=== PATIENT | male | born 1995 | race African-American/Black ===

== ENCOUNTER 2020-08-20 00:14 | Emergency (ER) | payer OTHER ==
[2020-08-20 01:13] VITALS: BP 128/82
[2020-08-20] MEDS ORDERED: LIDOCAINE 1% INJ-PF (10 MG/ML) 30 ML SDV INJ ONE (03:40)
[2020-08-20] MEDS ORDERED: ONDANSETRON 4 MG TAB.RAPDIS PO ONE (03:41)
[2020-08-20] MEDS ORDERED: OXYCODONE-ACETAMINOPHEN 5-325 MG TABLET PO ONE (03:41)
--- NOTE | 2020-08-20 03:42 | ER Document Report ---
ED Wound - General Chief Complaint: Laceration Stated Complaint: LAC TO LEFT PINKY Time Seen by Provider: 08/20/20 02:59 Notes: Patient is a 24-year-old male that comes emergency department for chief complaint of laceration to the left fifth finger over the palmar aspect. Patient states that he was using a box liner to cut through zip ties, he states 1 of the tires did not cut and he accidentally twisted the blade and caught his hand on it (he was holding the box liner with both hands). He is right-handed. He is up-to-date on his tetanus within 5 years. He denies any other complaints. Past Medical History - General Information source: Patient - Social History Smoking Status: Current Every Day Smoker Frequency of alcohol use: None Drug Abuse: None Lives with: Family Family History: Reviewed & Not Pertinent - Medical History Medical History: Negative Surgical Hx: Negative - Immunizations Immunizations up to date: Yes Hx Diphtheria, Pertussis, Tetanus Vaccination: Yes Review of Systems - Review of Systems Constitutional: No symptoms reported EENT: No symptoms reported Cardiovascular: No symptoms reported Respiratory: No symptoms reported Gastrointestinal: No symptoms reported Genitourinary: No symptoms reported Male Genitourinary: No symptoms reported Musculoskeletal: See HPI Skin: See HPI Hematologic/Lymphatic: No symptoms reported Neurological/Psychological: No symptoms reported Physical Exam - Vital signs Vitals: Temp Pulse Resp BP Pulse Ox 97.9 F 61 16 128/82 H 99 08/20/20 01:10 08/20/20 01:10 08/20/20 01:10 08/20/20 01:10 08/20/20 01:10 - Notes Notes: GENERAL: Alert, interacts well. No acute distress. HEAD: Normocephalic, atraumatic. EYES: Pupils equal, round, and reactive to light. Extraocular movements intact. ENT: Oral mucosa moist, tongue midline. Oropharynx unremarkable. Airway patent. LUNGS: Clear to auscultation bilaterally, no wheezes, rales, or rhonchi. No respiratory distress. Non-tender chest wall. HEART: Regular rate and rhythm. No murmur EXTREMITIES: There is a 2 cm flap laceration over the palmar aspect of the left fifth digit between the PIP and DIP areas. This is partial-thickness, on exploration no evidence of large vessel, tendon, or nerve injury is noted. Patient with normal sensation, full range of motion and strength against resistance in flexion and extension, normal capillary refill, no other abnormalities noted. BACK: no cervical, thoracic, lumbar midline tenderness. No saddle anesthesia, normal distal neurovascular exam. Moves all extremities in full range of motion. NEUROLOGICAL: Alert and oriented x3. Normal speech. Cranial nerves II through XII grossly intact. Strength 5/5 in all extremities. PSYCH: Normal affect, normal mood. SKIN: Warm, dry, normal turgor. No rashes or lesions noted. Course - Re-evaluation Re-evalutation: Patient with a flap laceration over the left fifth digit, this was explored, cleaned thoroughly, closed with sutures. No deficits noted. Discussed care, follow-up, return precautions. Patient states understanding and agreement. - Vital Signs Vital signs: Temp Pulse Resp BP Pulse Ox 97.9 F 61 16 128/82 H 99 08/20/20 01:10 08/20/20 01:10 08/20/20 01:10 08/20/20 01:10 08/20/20 01:10 Procedures - Laceration/Wound Repair left fifth digit Wound length (cm): 2 Wound's Depth, Shape: Irregular, Flap Laceration pre-procedure: Sterile PPE donned, Sterile drapes applied, Shur-Clens applied Anesthetic type: 1% Lidocaine Volume Anesthetic (mLs): 4 Wound explored: Clean, No foreign body removed Irrigated w/ Saline (mLs): 70 Wound Repaired With: Sutures Suture Size/Type: 5:0, Ethilon Layer Closure?: No Post-procedure wound care: Sterile dressing applied Post-procedure NV exam normal: Yes Complications: No Discharge - Discharge Clinical Impression: Laceration of left index finger Qualifiers: Encounter type: initial encounter Damage to nail status: without damage Foreign body presence: without foreign body Qualified Code(s): S61.211A - Laceration without foreign body of left index finger without damage to nail, initial encounter Condition: Stable Disposition: HOME, SELF-CARE Additional Instructions: The wound was repaired with sutures. Keep clean, clean with soap and water, dab dry, avoid soaking or scrubbing. You can apply a thin film of topical antibiotic. Change dressing at least daily or when this becomes soiled. You can take 1000 mg of Tylenol and 600 mg of ibuprofen together every 6 hours as needed for pain. Sutures need to be removed in about 7 days at a medical facility. Return sooner for any concerning symptoms including signs of infection such as developing pain, swelling, redness, discolored discharge, fever, or any other concerning symptoms. Forms: Return to Work
== END 2020-08-20 05:26 | disposition home or self-care (01) ==
LOC: ER 00:14
DX: S61.211A Laceration without foreign body of left index finger without damage to nail, initial encounter (principal); W27.8XXA Contact with other nonpowered hand tool, initial encounter; Y99.0 Civilian activity done for income or pay; F17.200 Nicotine dependence, unspecified, uncomplicated
CPT/HCPCS: 12001; 99282; J3490